=== PATIENT | male | born 1945 | race Caucasian/White ===

== ENCOUNTER → 2017-11-09 | Outpatient (CLI) | payer OTHER ==
[~2017-11-09] VITALS: Ht 182.9 cm; Wt 80.9 kg
[~2017-11-09] MED LIST: ACET-1693 PO; ALPHTAB9 PO; ASPI325T39 PO; ATOR-22 PO; BENZ100C84 PO; BISA10SU3 PR; CARB25TA12 PO; FINA5TAB PO; FLM4 PO; FRS/40 PO; GLIP-199 PO; IPRASOL4 INH; ISOS30TA35 PO; LEVE250T PO; LINA1TAB PO; LISI-729 PO; LRS10 PO; METO50TA8 PO; MULT1CHW33 PO; MULTTAB17 PO; NTRGSL/4 UT; OMEG10007 PO; ONDA4TAB46 PO; OSEL30CA PO; POLY1POW2 PO; POLYCAP4 PO; ROPI0.25 PO; SODI1ENE; SODI650T8 PO; TRAM-10 PO; TRAZ50TA35 PO; TYLOTC325 PO
[2017-11-09 14:45] VITALS: Ht 182.9 cm; Wt 80.9 kg
[2017-11-09 16:14] LABS: PTT PATIENT 27.8 SECONDS (21.0-31.0)
--- NOTE | 2017-11-10 15:37 | History and Physical ---
History & Physical Date Nov 09, 2017. 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 Notes difficulty with hygiene Past Medical/Surgical History s/p CTR and Cubital tunnel release Renal failure parkinson's disease stroke kidney disease HTN [place] Enlarged prostate High Cholesterol DM CAD CHF Angina Alcoholism Additional History Kidney Disease: Yes Hypertension: Yes Heart Disease: Yes Allergies Coded Allergies: Lorazepam (Verified Adverse Reaction, Severe, SEVERE PTSD, 11/09/17) FLASHBACKS TO [facility] Home Medications Scheduled Alpha-Lipoic Acid (Thioctic Ac (Alpha Lipoic Acid), 1 TAB PO BID Aspirin (Aspirin Ec), 325 MG PO DAILY Atorvastatin (Lipitor), 20 MG PO QPM Baclofen (Baclofen), 1 TAB PO QID Carbidopa/Levodopa (Sinemet 25MG/100MG), 2 TAB PO QID Finasteride (Proscar), 5 MG PO DAILY Fish Oil ([place]-3), 1 CAP PO BID Furosemide (Lasix), 40 MG PO DAILY Glipizide (Glipizide Er), 1 TAB PO DAILY Isosorbide Mononitrate Ext Rel (Imdur Ext Rel), 1 TAB PO DAILY Levetiracetam (Keppra), 250 MG PO BID Linagliptin (Tradjenta), 1 TAB PO DAILY Lisinopril (Zestril), 2.5 MG PO DAILY Metoprolol Succ (Toprol Xl) (Toprol-Xl), 50 MG PO BID Multiple Vitamins W/ Minerals (Centrum Flavor Burst Kids), 1 TAB PO DAILY Multiple Vitamins W/ Minerals (Icaps Mv), 1 TAB PO BID Nitroglycerin (Nitrostat), 0.4 MG [place] PRN Oseltamivir Phosphate (Tamiflu), Unknown Dose PO HS Polysaccharide Iron Complex (Iferex 150), 1 TAB PO DAILY Ropinirole (Requip), 0.25 MG PO HS Sodium Bicarbonate (Sodium Bicarbonate), 1 TAB PO BID Tamsulosin HCl (Tamsulosin HCl), 1 CAP PO QPM Trazodone Hcl (Trazodone), 25 MG PO HS Scheduled PRN Acetaminophen (Tylenol), 2 TAB PO Q6 PRN for Pain Acetaminophen Tab (Tylenol), 2 TAB PO Q6 PRN for Temp Benzonatate (Tessalon Perles), 2 CAP PO Q8 PRN for Cough Bisacodyl (Dulcolax), Unknown Dose [place] UD PRN for PRN Ipratropium-Albuterol (Duoneb), 1 TREATMENT INH Q4H PRN for PRN Ondansetron Hcl (Zofran), 4 MG PO Q8 PRN for Nausea Polyethylene Glycol 3350 (Bulk (Polyethylene Glycol 3350), Unknown Dose PO UD PRN for PRN Tramadol (Ultram), 2 TAB PO Q6 PRN for Pain Miscellaneous Medications Sodium Phosphates (Fleet Enema Six Pack), Unknown Dose Physical Examination Respiratory/Chest: + pertinent finding (wheezing) Addiitonal Comments: 70 degree elbow flexion contracture Wrist 100 degrees index finger is extended, 3-5 flexion contracture Diagnosis s/p stroke Parkinson's disease Spastic contracture left hand Plan of Treatment Patient will be set up for left hand FDS fractional lengthening and wrist flexor fractional lengthening.
--- NOTE | 2017-11-14 15:49 | PAT Medication Instructions ---
Service Date Nov 09, 2017. Current Home Medication List Acetaminophen (Tylenol), 2 TAB PO Q6 PRN for Pain Acetaminophen Tab (Tylenol), 2 TAB PO Q6 PRN for Temp Alpha-Lipoic Acid (Thioctic Ac (Alpha Lipoic Acid), 1 TAB PO BID Aspirin (Aspirin Ec), 325 MG PO DAILY Atorvastatin (Lipitor), 20 MG PO QPM Baclofen (Baclofen), 1 TAB PO QID Benzonatate (Tessalon Perles), 2 CAP PO Q8 PRN for Cough Bisacodyl (Dulcolax), Unknown Dose [place] UD PRN for PRN Carbidopa/Levodopa (Sinemet 25MG/100MG), 2 TAB PO QID Finasteride (Proscar), 5 MG PO DAILY Fish Oil ([place]-3), 1 CAP PO BID Furosemide (Lasix), 40 MG PO DAILY Glipizide (Glipizide Er), 1 TAB PO DAILY Ipratropium-Albuterol (Duoneb), 1 TREATMENT INH Q4H PRN for PRN Isosorbide Mononitrate Ext Rel (Imdur Ext Rel), 1 TAB PO DAILY Levetiracetam (Keppra), 250 MG PO BID Linagliptin (Tradjenta), 1 TAB PO DAILY Lisinopril (Zestril), 2.5 MG PO DAILY Metoprolol Succ (Toprol Xl) (Toprol-Xl), 50 MG PO BID Multiple Vitamins W/ Minerals (Centrum Flavor Burst Kids), 1 TAB PO DAILY Multiple Vitamins W/ Minerals (Icaps Mv), 1 TAB PO BID Nitroglycerin (Nitrostat), 0.4 MG [place] PRN Ondansetron Hcl (Zofran), 4 MG PO Q8 PRN for Nausea Oseltamivir Phosphate (Tamiflu), Unknown Dose PO HS Polyethylene Glycol 3350 (Bulk (Polyethylene Glycol 3350), Unknown Dose PO UD PRN for PRN Polysaccharide Iron Complex (Iferex 150), 1 TAB PO DAILY Ropinirole (Requip), 0.25 MG PO HS Sodium Bicarbonate (Sodium Bicarbonate), 1 TAB PO BID Sodium Phosphates (Fleet Enema Six Pack), Unknown Dose Tamsulosin HCl (Tamsulosin HCl), 1 CAP PO QPM Tramadol (Ultram), 2 TAB PO Q6 PRN for Pain Trazodone Hcl (Trazodone), 25 MG PO HS Medication Instructions For Your Scheduled Surgery - Continue as directed: Nitroglycerin (Nitrostat), 0.4 MG [place] PRN Oseltamivir Phosphate (Tamiflu), Unknown Dose PO HS - Per surgeon's instructions: Aspirin (Aspirin Ec), 325 MG PO DAILY - Hold the following medications 2 weeks prior to surgery: Fish Oil ([place]-3), 1 CAP PO BID - Hold the following medications 24 hours prior to surgery: Ropinirole (Requip), 0.25 MG PO HS - Hold the following medications the morning of surgery: Alpha-Lipoic Acid (Thioctic Ac (Alpha Lipoic Acid), 1 TAB PO BID Benzonatate (Tessalon Perles), 2 CAP PO Q8 PRN for Cough Bisacodyl (Dulcolax), Unknown Dose [place] UD PRN for PRN Furosemide (Lasix), 40 MG PO DAILY Glipizide (Glipizide Er), 1 TAB PO DAILY Lisinopril (Zestril), 2.5 MG PO DAILY Multiple Vitamins W/ Minerals (Centrum Flavor Burst Kids), 1 TAB PO DAILY Multiple Vitamins W/ Minerals (Icaps Mv), 1 TAB PO BID Linagliptin (Tradjenta), 1 TAB PO DAILY Sodium Bicarbonate (Sodium Bicarbonate), 1 TAB PO BID Polysaccharide Iron Complex (Iferex 150), 1 TAB PO DAILY Sodium Phosphates (Fleet Enema Six Pack), Unknown Dose Polyethylene Glycol 3350 (Bulk (Polyethylene Glycol 3350), Unknown Dose PO UD PRN for PRN - Take the following medications the morning of surgery with a sip of water OTHERWISE NOTHING TO EAT OR DRINK AFTER MIDNIGHT: Acetaminophen (Tylenol), 2 TAB PO Q6 PRN for Pain (may take if needed up to 4 hours prior to surgery) Acetaminophen Tab (Tylenol), 2 TAB PO Q6 PRN for Temp (may take if needed up to 4 hours prior to surgery) Tramadol (Ultram), 2 TAB PO Q6 PRN for Pain (may take if needed up to 4 hours prior to surgery) Carbidopa/Levodopa (Sinemet 25MG/100MG), 2 TAB PO QID Finasteride (Proscar), 5 MG PO DAILY Isosorbide Mononitrate Ext Rel (Imdur Ext Rel), 1 TAB PO DAILY Ipratropium-Albuterol (Duoneb), 1 TREATMENT INH Q4H PRN for PRN Metoprolol Succ (Toprol Xl) (Toprol-Xl), 50 MG PO BID Levetiracetam (Keppra), 250 MG PO BID Ondansetron Hcl (Zofran), 4 MG PO Q8 PRN for Nausea Baclofen (Baclofen), 1 TAB PO QID - Take the following medications as scheduled the night before surgery: Alpha-Lipoic Acid (Thioctic Ac (Alpha Lipoic Acid), 1 TAB PO BID Atorvastatin (Lipitor), 20 MG PO QPM Carbidopa/Levodopa (Sinemet 25MG/100MG), 2 TAB PO QID Ipratropium-Albuterol (Duoneb), 1 TREATMENT INH Q4H PRN for PRN Metoprolol Succ (Toprol Xl) (Toprol-Xl), 50 MG PO BID Levetiracetam (Keppra), 250 MG PO BID Ondansetron Hcl (Zofran), 4 MG PO Q8 PRN for Nausea Baclofen (Baclofen), 1 TAB PO QID Tamsulosin HCl (Tamsulosin HCl), 1 CAP PO QPM Trazodone Hcl (Trazodone), 25 MG PO HS Tramadol (Ultram), 2 TAB PO Q6 PRN for Pain Sodium Bicarbonate (Sodium Bicarbonate), 1 TAB PO BID If you have any questions please call us at [phone] or [phone] or [phone]
== END | disposition home or self-care (01) ==
LOC: C.LAB 08:00 → EDSTATUS 12-05 07:15
PROVIDERS: ATTEND Orthopaedic Surgery
DX: Z01.812 Encounter for preprocedural laboratory examination (principal)